=== PATIENT | female | born 1975 | race Hispanic/Latino ===

== ENCOUNTER 2017-11-06 06:40 | Emergency (ER) | payer SELFPAY ==
[2017-11-06] MEDS ORDERED: KETOROLAC TROMETHAMINE 30MG/ML ONE (06:53)
[2017-11-06] MEDS ORDERED: ACETAMINOPHEN-CODEINE ELIXIR 5 ML UDCUP ONE (06:53)
[2017-11-06 07:18] LABS: BASOPHILS % (AUTO) 1.5 % (0.0-5.0); EOSINOPHILS % (AUTO) 7.4 % (0.0-8.0); HEMATOCRIT 45.3 % (36-48); LYMPHOCYTES % (AUTO) 32.4 % (21.0-51.0); MEAN CORPUSCULAR HEMOGLOBIN 28.2 pg (27.0-33.0); MEAN CORPUSCULAR HGB CONC 33.6 g/dL (32.0-36.0); MEAN CORPUSCULAR VOLUME 84.1 fL (79-99); MONOCYTES % (AUTO) 9.8 % (3.0-13.0); NEUTROPHILS % (AUTO) 48.9 % (40.0-77.0); PLATELET COUNT (AUTO) 226 K/uL (130-400); RED BLOOD CELL COUNT(AUTO) 5.39 MIL/uL (4.00-5.50); RED CELL DISTRIBUTION WIDTH 13.4 % (11.0-15.5); WHITE BLOOD COUNT (AUTO) 7.1 K/uL (4.8-10.8)
[2017-11-06 07:23] LABS: CREATININE 0.7 mg/dL (0.5-1.5); POTASSIUM 3.5 mmol/L (3.5-5.1)
[2017-11-06 07:29] LABS: BILIRUBIN,TOTAL 0.6 mg/dL (0.2-1.0); TOTAL PROTEIN, SERUM 6.1 g/dL (6.0-8.3)
[2017-11-06 07:54] LABS: APPEARANCE,URINE Cloudy (CLEAR); BILIRUBIN,URINE Negative (NEGATIVE); COLOR,URINE Yellow (YELLOW); GLUCOSE, URINE (UA) Negative (NEGATIVE); KETONES,URINE Negative (NEGATIVE); LEUKOCYTE ESTERASE ,URINE Negative (NEGATIVE); NITRATE,URINE Negative (NEGATIVE); OCCULT BLOOD,URINE Trace (NEGATIVE); PH,URINE 5.5 (5.0-8.0); PROTEIN,URINE Negative (NEGATIVE)
[2017-11-06 08:32] LABS: SQUAMOUS EPITHELIAL CELL,UR Few /HPF (0-2)
[2017-11-06 08:33] LABS: MUCUS,URINE Moderate LPF (None Seen); RBC,URINE 0-1 /HPF (0-1); WBC,URINE None Seen /HPF (0-1)
[2017-11-06 08:34] LABS: BACTERIA,URINE Few /HPF (None Seen)
== END 2017-11-06 09:33 | disposition home or self-care (01) ==
LOC: EDH 06:40
DX: M54.5 Low back pain (principal)
CPT/HCPCS: 36415; 72131; 80053; 81001; 81025; 85025; 93005; 96372; 99285; J1885

== ENCOUNTER 2017-12-29 10:53 | Emergency (ER) | payer MEDICAID, OTHER ==
[2017-12-29 11:52] LABS: APPEARANCE,URINE Clear (CLEAR); BILIRUBIN,URINE Negative (NEGATIVE); COLOR,URINE Yellow (YELLOW); GLUCOSE, URINE (UA) Negative (NEGATIVE); KETONES,URINE Negative (NEGATIVE); LEUKOCYTE ESTERASE ,URINE Moderate (NEGATIVE); NITRATE,URINE Negative (NEGATIVE); OCCULT BLOOD,URINE Small (NEGATIVE); PROTEIN,URINE Negative (NEGATIVE); UROBILINOGEN,URINE 0.2 mg/dL (0.2-1.0)
[2017-12-29 11:54] LABS: HCG,QUAL RESULT NEGATIVE (NEGATIVE)
[2017-12-29 11:56] LABS: BACTERIA,URINE Rare /HPF (None Seen); RBC,URINE 0-1 /HPF (0-1); SQUAMOUS EPITHELIAL CELL,UR Rare /HPF (0-2)
== END 2017-12-29 12:08 | disposition home or self-care (01) ==
LOC: EDH 10:53
DX: N39.0 Urinary tract infection, site not specified (principal); Z90.49 Acquired absence of other specified parts of digestive tract; Z72.0 Tobacco use
CPT/HCPCS: 81001; 81025

== ENCOUNTER 2018-11-30 18:05 | Emergency (ER) | payer MEDICAID, OTHER ==
[2018-11-30] MEDS ORDERED: HYOSCYAMINE SULFATE 0.125 MG TAB.SUBL SL ONE (19:23)
[2018-11-30] MEDS ORDERED: ONDANSETRON ODT 4 MG TAB ONE (19:24)
[2018-11-30 19:31] LABS: APPEARANCE,URINE Clear (CLEAR); BILIRUBIN,URINE Negative (NEGATIVE); COLOR,URINE Yellow (YELLOW); GLUCOSE, URINE (UA) Negative (NEGATIVE); KETONES,URINE 15 mg/dL (NEGATIVE); LEUKOCYTE ESTERASE ,URINE Negative (NEGATIVE); NITRATE,URINE Negative (NEGATIVE); OCCULT BLOOD,URINE Large (NEGATIVE); PROTEIN,URINE Negative (NEGATIVE)
[2018-11-30 19:36] LABS: HCG,QUAL RESULT NEGATIVE (NEGATIVE)
[2018-11-30 19:45] LABS: RAPID GROUP A STREP NEGATIVE (NEGATIVE)
[2018-11-30 19:48] LABS: BACTERIA,URINE Few /HPF (None Seen)
[2018-11-30 19:49] LABS: WBC,URINE None Seen /HPF (0-1)
== END 2018-11-30 21:07 | disposition home or self-care (01) ==
LOC: EDH 18:05
DX: B34.9 Viral infection, unspecified (principal); Z90.49 Acquired absence of other specified parts of digestive tract; Z98.890 Other specified postprocedural states; Z72.0 Tobacco use
CPT/HCPCS: 74018; 81001; 81025; 87804; 87880

== ENCOUNTER 2019-01-29 10:59 | Emergency (ER) | payer SELFPAY ==
[2019-01-29 11:49] LABS: APPEARANCE,URINE Clear (CLEAR); BILIRUBIN,URINE Negative (NEGATIVE); COLOR,URINE Yellow (YELLOW); GLUCOSE, URINE (UA) Negative (NEGATIVE); KETONES,URINE Negative (NEGATIVE); LEUKOCYTE ESTERASE ,URINE Negative (NEGATIVE); NITRATE,URINE Negative (NEGATIVE); OCCULT BLOOD,URINE Moderate (NEGATIVE); PH,URINE 5.5 (5.0-8.0); PROTEIN,URINE Negative (NEGATIVE)
[2019-01-29 11:57] LABS: HCG,QUAL RESULT NEGATIVE (NEGATIVE)
[2019-01-29 12:21] LABS: BACTERIA,URINE Few /HPF (None Seen); WBC,URINE 0-1 /HPF (0-1)
[2019-01-29] MEDS ORDERED: ORPHENADRINE CITRATE 30 MG/ML ML ONE (12:34)
[2019-01-29] MEDS ORDERED: KETOROLAC TROMETHAMINE 60 MG/2 ML VIAL ONE (12:34)
== END 2019-01-29 12:55 | disposition home or self-care (01) ==
LOC: EDH 10:59
DX: M54.32 Sciatica, left side (principal)
CPT/HCPCS: 81001; 81025; 96372 ×2; 99284; J1885; J2360

== ENCOUNTER 2025-04-30 11:18 | Emergency (ER) | payer BC ==
[~2025-04-30] VITALS: Ht 152.4 cm; Wt 104.3 kg
[~2025-04-30 11:18] MED LIST: CYCL-309 PO; IBUP-2077 PO
[2025-04-30 11:40] LABS: IMMATURE GRANULOCYTE ABSOLUTE 0.04 K/uL (0-1); NUCLEATED RED BLOOD CELLS 0.0 % (0.0-0.19); PLATELET COUNT (AUTO) 281 K/uL (130-400); RED BLOOD CELL COUNT(AUTO) 5.47 MIL/uL (4.00-5.50); RED CELL DISTRIBUTION WIDTH 13.3 % (11.0-15.5); WHITE BLOOD COUNT (AUTO) 9.6 K/uL (4.8-10.8)
[2025-04-30 11:49] LABS: CREATININE 0.5 mg/dL (0.5-1.0); GLOMERULAR FILTR. RATE CALC 116.0 mL/min (>90); GLUCOSE,RANDOM 92.0 mg/dL (70-105); SODIUM SERUM 140.0 mmol/L (136-145); UREA NITROGEN, BLOOD 13.0 mg/dL (7-18)
[2025-04-30 11:53] LABS: ASPARTATE AMINOTRANSFERASE 18.0 U/L (10-37); TOTAL PROTEIN, SERUM 7.9 g/dL (6.0-8.3)
--- NOTE | 2025-04-30 11:59 | EKG ---
[facility] Test Date: 2025-04-30 Test Time: 11:53:50 Pat Name: JIE MCGHEE Department: ED Room: Gender: F Carpenter Form: 0699 : 1975 Requested By: RACIEL BALLARD Order Number: [id number] Reading MD: John Vazquez Measurements Intervals [place] Rate: 67 P: 4 CT: 146 QRS: -16 QRSD: 101 T: 2 QT: 418 QTc: 442 Interpretive Statements Sinus rhythm Low voltage, precordial leads Consider anterolateral infarct Compared to ECG 11/06/2017 06:50:18 Low QRS voltage now present Sinus arrhythmia no longer present Myocardial infarct finding still present Electronically Signed On 04-30-2025 17:46:39 CDT by John Vazquez Please click the below link to view image of tracing.
[2025-04-30 12:23] LABS: APPEARANCE,URINE CLEAR (CLEAR); GLUCOSE, URINE (UA) NEGATIVE (NEGATIVE); LEUKOCYTE ESTERASE ,URINE NEGATIVE Leu/uL (NEGATIVE); NITRATE,URINE NEGATIVE (NEGATIVE); OCCULT BLOOD,URINE MODERATE (NEGATIVE)
[2025-04-30 12:25] LABS: ADD UA MICROSCOPIC YES
[2025-04-30] MEDS: 0.9%NACL 1000ML 1,000 ML IV STA (12:28)
[2025-04-30] MEDS: FAMOTIDINE 20MG VIAL IV ONE (12:28)
[2025-04-30 12:30] LABS: AMPHET/METH SCREEN,URINE NEGATIVE (NEGATIVE); BARBITURATE SCREEN, URINE NEGATIVE (NEGATIVE); CANNABINOID SCREEN,URINE NEGATIVE (NEGATIVE); COCAINE SCREEN,URINE NEGATIVE (NEGATIVE)
[2025-04-30 12:33] LABS: SQUAMOUS EPITHELIAL CELL,UR RARE /HPF (0-2)
--- NOTE | 2025-04-30 13:21 | HMCIMG ---
EXAM: CR Chest, 1 View. CLINICAL HISTORY: cp COMPARISON: None provided. FINDINGS: LUNGS: There is no mass, infiltrate, or acute pulmonary abnormality. PLEURAL SPACES: No pleural effusion or pneumothorax. MEDIASTINUM: The cardiomediastinal silhouette is within normal limits. BONES: No aggressive appearing osseous lesion seen. IMPRESSION: No acute cardiopulmonary pathology is evident. /[place]
[2025-04-30] MEDS ORDERED: HYDR-3421 PO (13:43)
--- NOTE | 2025-04-30 13:43 | ERN ---
ED Note History of Present Illness Stated Complaint: NAUSEA, DIARRHEA Chief Complaint: Nausea,Vomiting,Diarrhea Time Seen by MD: 11:21 Time Seen by Midlevel: 11:25 Dictation: 49-year-old female with no past medical history coming in with complaints of sudden onset of dizziness, diarrhea and vomiting. Patient states she has has a episodes of diarrhea with no blood or melena, and two episodes of vomiting with no blood. Patient states it started at 3:00 a.m.. Also stating she feels very anxious. Does not have a history of anxiety. Denies having any chest pain, chest discomfort, shortness a breath. Allergies: Coded Allergies: No Known Drug Allergies (Unverified Allergy, Unknown, 11/30/18) Home Meds Active Scripts Ibuprofen (Ibuprofen 800 mg Tab) 800 Mg Tab, 800 MG PO Q8H PRN for fever or pain, #30 TAB 0 Refills Prov:REYNA VARMAP 05/11/24 Cyclobenzaprine HCl (Cyclobenzaprine HCl) 10 Mg Tablet, 1 TAB PO TID for muscle spasms for 10 Days, #30 TAB 0 Refills Prov:REYNA VARMAP 05/11/24 Past Medical History Past Medical History: No Pertinent History Surgical History: None History: Not Applicable Review of System Dictation Constitutional: Negative for fever,chills, and weight loss Eyes: Negative for injury, pain,redness, and discharge ENT: Negative for injury,pain or swelling Cardiovascular: Negative for chest pain, palpitations, and edema Respiratory: Negative for shortness of breath, cough, and wheezing, Abdomen/GI: Had episodes of diarrhea do a vomiting Back: Negative for injury and pain : Negative for injury, bleeding and discharge MS/Extremity: Negative for injury and deformity Skin: Negative for rash, and discoloration Neuro: Negative for headache, weakness, numbness, tingling, and seizure Psych: Negative for suicide ideation, homicidal ideation, and hallucinations, patient states he feels anxious Review of Systems: was completed Initial Vital Sign VS Vital Signs Date Time Temp Pulse Resp B/P (MAP) Pulse Ox O2 Delivery O2 Flow Rate FiO2 04/30/25 11:19 97.5 81 18 172/97 97 04/30/25 12:13 Room Air* 0 21 Physical Exam Dictation General: awake, alert, NAD Head/Face: Normocephalic, atraumatic Eyes: PERRL, EOMI, vision at baseline ENT: oral cavity clear, TMs clear, no signs of infection Neck: Trachea midline, supple, no nuchal rigidity Cardiovascular: RRR, normal S1/S2, No MRGs, no JVD Respiratory: CTAB, no respiratory distress, No rales or wheezes Abdomen: Soft, non-tender, non-distended, normal bowel sounds, no guarding or rebound. Skin: Warm, dry, normal turgor, no rash MS/Extremity: Pulses equal, no cyanosis, neurovascular intact, FROM Neuro: COAx4, GCS 15, strength 5/5, CN 2-12 intact, normal cerebellar exam, normal gait, Psych: Normal behavior, mood, and affect normal Results (Laboratory/Radiology) Laboratory/Radiology Laboratory Tests Test 04/30/25 11:34 04/30/25 12:15 White Blood Count 9.6 K/uL (4.8-10.8) Red Blood Count 5.47 MIL/uL (4.00-5.50) Hemoglobin 14.9 g/dL (12.0-16.0) Hematocrit 45.4 % (36-48) Mean Corpuscular Volume 83.0 fL (79-99) Mean Corpuscular Hemoglobin 27.2 pg (27.0-33.0) Mean Corpuscular Hemoglobin Concent 32.8 g/dL (32.0-36.0) Red Cell Distribution Width 13.3 % (11.0-15.5) Platelet Count 281 K/uL (130-400) Mean Platelet Volume 11.2 fL (7.5-10.5) H Immature Granulocyte % (Auto) 0.4 % (0-1) Neutrophils (%) (Auto) 52.1 % (40.0-77.0) Lymphocytes (%) (Auto) 36.5 % (21.0-51.0) Monocytes (%) (Auto) 7.1 % (3.0-13.0) Eosinophils (%) (Auto) 2.7 % (0.0-8.0) Basophils (%) (Auto) 1.2 % (0.0-5.0) Neutrophils # (Auto) 5.0 K/uL (1.8-7.7) Lymphocytes # (Auto) 3.5 K/uL (1.0-4.8) Monocytes # (Auto) 0.7 K/uL (0.1-1.0) Eosinophils # (Auto) 0.26 K/uL (0.00-0.70) Basophils # (Auto) 0.11 K/uL (0.00-0.20) Absolute Immature Granulocyte (auto 0.04 K/uL (0-1) Nucleated Red Blood Cells 0.0 % (0.0-0.19) Sodium Level 140 mmol/L (136-145) Potassium Level 3.6 mmol/L (3.5-5.1) Chloride Level 102 mmol/L (101-111) Carbon Dioxide Level 28 mmol/L (21-32) Blood Urea Nitrogen 13 mg/dL (7-18) Creatinine 0.5 mg/dL (0.5-1.0) Glomerular Filtration Rate Calc 116 mL/min (>90) Random Glucose 92 mg/dL (70-105) Total Calcium 9.1 mg/dL (8.5-10.1) Total Bilirubin 0.6 mg/dL (0.2-1.0) Direct Bilirubin 0.2 mg/dL (0.0-0.3) Aspartate Amino Transf (AST/SGOT) 18 U/L (10-37) Alanine Aminotransferase (ALT/SGPT) 29 U/L (12-78) Alkaline Phosphatase 72 U/L (50-136) Troponin I High Sensitivity 5 ng/L (4-50) Total Protein 7.9 g/dL (6.0-8.3) Albumin 3.8 g/dL (3.5-5.0) Lipase 23 U/L (16-77) Urine Color COLORLESS (YELLOW) Urine Appearance CLEAR (CLEAR) Urine pH 7.0 (5.0-8.0) Urine Specific [place] 1.008 (1.001-1.031) Urine Protein NEGATIVE mg/dL (NEGATIVE) Urine Glucose (UA) NEGATIVE mg/dL (NEGATIVE) Urine Ketones NEGATIVE mg/dL (NEGATIVE) Urine Occult Blood MODERATE (NEGATIVE) H Urine Nitrate NEGATIVE (NEGATIVE) Urine Bilirubin NEGATIVE mg/dL (NEGATIVE) Urine Urobilinogen 0.2 mg/dL (0.2-1.0) Urine Leukocyte Esterase NEGATIVE [place]/uL Urine RBC 6-10 /HPF (0-1) H Urine WBC 0-1 /HPF (0-1) Urine Squamous Epithelial Cells RARE /HPF (0-2) Urine Bacteria None /HPF (None Seen) Urine Opiates Screen NEGATIVE (NEGATIVE) Urine Barbiturates Screen NEGATIVE (NEGATIVE) Urine Phencyclidine Screen NEGATIVE (NEGATIVE) Urine Amphetamines Screen NEGATIVE (NEGATIVE) Urine Benzodiazepines Screen NEGATIVE (NEGATIVE) Urine Cocaine Screen NEGATIVE (NEGATIVE) Urine Marijuana (THC) Screen NEGATIVE (NEGATIVE) Labs Reviewed?: Yes EKG Comment: EKGs done at 11:53 a.m.. Sinus rhythm at a rate of 67. STEMI interpreted by ER MD X-RAY Comment: [place] [address] [place] [id number] IMAGING REPORT Signed PATIENT: JIE MCGHEE MR#: [id number] : 1975 SEX: F AGE: 49 LOCATION: [facility] ORDER 27 STATUS: REG ER REPORT#: [id number] SERVICE 26 REASON: cp ORDERING PHYSICIAN: RACIEL BALLARD CNP PROCEDURE: CXR1VW - CHEST 1VW EXAM: CR Chest, 1 View. CLINICAL HISTORY: cp COMPARISON: None provided. FINDINGS: LUNGS: There is no mass, infiltrate, or acute pulmonary abnormality. PLEURAL SPACES: No pleural effusion or pneumothorax. MEDIASTINUM: The cardiomediastinal silhouette is within normal limits. BONES: No aggressive appearing osseous lesion seen. IMPRESSION: No acute cardiopulmonary pathology is evident. /[place] DICTATED BY: CARLOS ALBERTO SAGASTUME Jr., MD DATE: 04/30/251419 ELECTRONICALLY SIGNED BY: CARLOS ALBERTO SAGASTUME Jr., MD DATE: 04/30/251419 ED Course ED Course Orders Procedure Category Date Status Time Cbc With Differential LAB 04/30/25 Complete 11:27 Basic Metabolic Panel LAB 04/30/25 Complete 11:27 Lipase LAB 04/30/25 Complete 11:27 Hepatic Function Panel LAB 04/30/25 Complete 11:27 Troponin I High LAB 04/30/25 Complete Sensitivity 11:27 12 Lead Ekg Tracing- EKG 04/30/25 Complete Technical 11:27 Chest 1vw RAD 04/30/25 Resulted 11:27 0.9%Nacl 1000ml (Ns PHA 04/30/25 Complete 1000ml) 11:27 Ondansetron 4mg Inj PHA 04/30/25 Complete (Zofran 4mg Inj) 11:30 Famotidine 20mg Vial PHA 04/30/25 Complete (Pepcid 20mg Vial) 11:30 Urinalysis Profile LAB 04/30/25 Complete 11:28 Drug Screen Urine LAB 04/30/25 Complete 11:28 Hydroxyzine 25mg Tab PHA 04/30/25 Complete (Atarax 25mg Tab) 11:29 Current Medications Medications (Trade) Dose Ordered Sig/Alia Route PRN Reason Start Time Stop Time Status Last Admin Dose Admin Famotidine (Pepcid 20mg Vial) 20 mg ONCE ONCE IV 04/30/25 11:30 04/30/25 11:31 DC 04/30/25 12:28 Hydroxyzine HCl (ATArax 25MG TAB) 25 mg ONCE STAT PO 04/30/25 11:29 04/30/25 11:30 DC 04/30/25 12:28 Ondansetron HCl (zoFRAN 4MG INJ) 4 mg ONCE ONCE IVP 04/30/25 11:30 04/30/25 11:31 DC 04/30/25 12:28 Sodium Chloride 1,000 ml @ 1,000 mls/hr Q1H STAT IV 04/30/25 11:27 04/30/25 12:26 DC 04/30/25 12:28 Vital Signs Date Time Temp Pulse Resp B/P (MAP) Pulse Ox O2 Delivery O2 Flow Rate FiO2 04/30/25 12:13 97.5 78 18 168/74 97 Room Air* 0 21 04/30/25 11:19 97.5 81 18 172/97 97 Medical Decision Making MDM MDM: 49-year-old female with no past medical history coming in with complaints of sudden onset of dizziness, diarrhea and vomiting. Patient states she has has a episodes of diarrhea with no blood or melena, and two episodes of vomiting with no blood. Patient states it started at 3:00 a.m.. Also stating she feels very anxious. Does not have a history of anxiety. Denies having any chest pain, chest discomfort, shortness a breath. Blood work is unremarkable. Troponin is negative. Chest x-ray shows no acute finding. EKGs normal. Discussed with the patient possibility since being gastroenteritis and anxiety. We will prescribe patient medication for anxiety and have patient follow up with PCP in 1-2 days. Also educated on red flag symptoms of when to return back to the emergency room. Patient verbalized understanding, answered all questions. Differential diagnosis:, gastroenteritis, gastritis, Rationale: Tests considered and ordered secondary to shared decision making include: Previous outside records reviewed: Old ER visits. Risk of complication and/or morbidity or mortality of patient management: None Medications-Per medication reconciliation Need for hospitalization: Patient does not meet criteria for hospitalization. Need for emergency major/minor surgery: No There are no social concerns with this patient. Prescription drug management Prescriptions will include symptomatic care Patient's prior external medical records from other ER visits were reviewed by me as indicated. Prior testing and results from previous visits were reviewed. Prior tests were taken into account with medical decision making and resource utilization, independent historian/historians were used to obtain complete [facility] history. I independently interpreted the test that were performed, results were reviewed by me and considered findings on radiology if ordered. Medical management and examination interpretation discussions were had by me with other qualified healthcare professionals as indicated for the patient's care. DX & DISP Disposition: Discharge Departure Impression: Primary Impression: Anxiety Additional Impressions: Vasovagal episode, Nausea & vomiting Condition: Stable Scripts Hydroxyzine HCl (Hydroxyzine HCl) 25 Mg Tablet 1 TAB PO TID for anxiety for 10 Days, #30 TAB 0 Refills Prov: RACIEL BALLARD CNP 04/30/25 Referrals: SARAVANAN THOMPSON MD (PCP) Time of Disposition: 13:42 I have reviewed the case, and I agree with, Diagnosis and Plan RACIEL BALLARD CNP Apr 30, 2025 13:43
[2025-04-30 14:09] VITALS: BP 135/72; PULSE 72; RESP 18; TEMP 97.5; O2SAT 97
== END 2025-04-30 14:10 | disposition home or self-care (01) ==
LOC: EDH 11:18
DX: F41.9 Anxiety disorder, unspecified (principal); R55 Syncope and collapse; R11.2 Nausea with vomiting, unspecified; Z79.899 Other long term (current) drug therapy
CPT/HCPCS: 99284; 96374; 71045; 96375; 80076; 84484; 80048; 80305; 83690; 85025; 36415; 93005; 81001; J1308; J7030; J2405